=== PATIENT | male | born 2000 | race Two or more races ===

== ENCOUNTER 2018-10-29 19:26 | Emergency (ER) | payer OTHER ==
[~2018-10-29] VITALS: Ht 177.8 cm; Wt 86.6 kg
[2018-10-29 19:34] VITALS: BP 131/68
--- NOTE | 2018-10-29 20:19 | PHYS DOC ---
Past Medical History Past Medical History: Asthma (SHIKHA APPIAH APRN) Past Surgical History: No Surgical History (SHIKHA APPIAH APRN) Alcohol Use: None Drug Use: None (SHIKHA APPIAH APRN) Adult General Chief Complaint Chief Complaint: TOE PROBLEM HPI HPI 17-year-old male presents to ER with complaints of left fourth toe injury which occurred today at 11:00 when he dropped a board on his foot. Pt denies any other injury. He reports he has been ambulatory but does have increased pain at the left fourth toe with weightbearing. He denies taking any [id number]-[id number] medications prior to arrival and at this time is preferring no medications. (SHIKHA APPIAH APRN) Review of Systems Review of Systems Musculoskeletal: Reports lt 4th toe pain with swelling/bruising- denies open wounds Integument: Denies rash or skin lesions [] All other systems were reviewed and found to be within normal limits, except as documented in this note. (SHIKHA APPIAH APRN) Allergies Allergies Allergies Coded Allergies Type Severity Reaction Last Updated Verified No Known Drug Allergies 10/29/18 No (ZENON STOUT MD) Physical Exam Physical Exam Constitutional: Well developed, well nourished, no acute distress, non-toxic appearance. [] HENT: Normocephalic, atraumatic, oropharynx moist, nose normal. [] Eyes: Pupils equal, conjunctiva normal, no discharge. [] Neck: Normal range of motion, supple Cardiovascular:Heart rate regular Lungs & Thorax: Resp. equal/nonlabored Skin: Warm, dry, no erythema, no rash. [] Back: No tenderness, no CVA tenderness. [] Extremities: No cyanosis, no clubbing, ROM intact. 2+ posterior tibial/dorsalis pedis. Swelling/ecchymosis to lt 4th toe- no nail bed hematoma. Tender on palp. extending into base of toe. No other pain on palp. of lt foot/malleolus. Neurologic: Alert and oriented X 3, normal motor function, normal sensory function, no focal deficits noted. [] Psychologic: Affect normal, judgement normal, mood normal. [] (SHIKHA APPIAH APRN) Current Patient Data Vital Signs Vital Signs Date Time Temp Pulse Resp B/P (MAP) Pulse Ox O2 Delivery O2 Flow Rate FiO2 10/29/18 19:34 99.5 95 16 131/68 (89) 98 Room Air 99.5 (ZENON STOUT MD) EKG EKG [] (SHIKHA APPIAH APRN) Radiology/Procedures Radiology/Procedures [] (SHIKHA APPIAH APRN) Course & Med Decision Making Course & Med Decision Making Pertinent Imaging studies reviewed. (See chart for details) 2024: Patient was evaluated in the ER for complaints of left fourth toe injury area. X-ray was obtained and viewed by Dr. Stout with no obvious displaced fxs. This discussed with patient along with plans for Andrés tape and Ortho shoe. Discussed f/u with orthop. doctor if sxs persist or with concerns. Pt remains PMS intact in left lower extremity and has had steady unassisted gait. Education provided on signs and symptoms to return to ER. Discharge instructions were discussed. Will provide orthopedic referral on discharge paperwork. Patient was offered pain medication however preferred no treatment while in the ER. (SHIKHA APPIAH APRN) Course & Med Decision Making Staff Physician Addendum: I was working in the ER during the course of this patient's visit. I was available for consultation as needed, but I was not directly involved in the care of this patient. (ZENON STOUT MD) Dragon Disclaimer Dragon Disclaimer This electronic medical record was generated, in whole or in part, using a voice recognition dictation system. (SHIKHA APPIAH APRN) Departure Departure Impression: Primary Impression: Injury of toe on left foot Disposition: HOME, SELF-CARE Condition: STABLE Referrals: DONA CONTRERAS II, MD Patient Instructions: Andrés Taping of Toes, Crush Injury, Fingers or Toes, Luis rd-Soled Shoe Additional Instructions: Tylenol and/or ibuprofen as needed for pain as directed on container. Ice pack to affected area every 3-4 hours for 20-30 minutes at a time. Avoid direct ice contact to skin. If symptoms persist follow-up with orthopedic doctor for reevaluation and further care. SHIKHA APPIAH APRN Oct 29, 2018 20:19 ZENON STOUT MD Oct 30, 2018 03:53
--- NOTE | 2018-10-30 04:36 | RAD ---
Three-view left fourth toe radiographs 10/29/2018 CLINICAL HISTORY: Injury to the left fourth toe. An AP digital radiograph of the left foot was obtained. Oblique and lateral radiographs of the left fourth toe were obtained. No fracture or dislocation of the left fourth toe is seen. IMPRESSION: No fracture or dislocation of the left fourth toe is seen. Electronically signed by: Norm Alvarez MD (10/30/2018 4:32 AM) [id number]
== END 2018-10-29 20:45 | disposition home or self-care (01) ==
LOC: ER 19:26
DX: S99.922A Unspecified injury of left foot, initial encounter (principal); J45.909 Unspecified asthma, uncomplicated; W20.8XXA Other cause of strike by thrown, projected or falling object, initial encounter; Y93.89 Activity, other specified; Y92.89 Other specified places as the place of occurrence of the external cause; Y99.8 Other external cause status
CPT/HCPCS: 73660; 99284